=== PATIENT | male | born 1995 | race Two or more races ===

== ENCOUNTER 2019-12-23 09:56 | Emergency (ER) | payer BC ==
--- NOTE | 2019-12-23 11:32 | CT ---
CT abdomen and pelvis Technique: Multiple axial sections were obtained from above the dome of the diaphragm inferiorly through the pubic symphysis. Intravenous and oral contrast not utilized. Study has been performed as a ureteral stone protocol. Findings: Left ureter is mildly prominent. This finding is caused by an obstructing stone within the distal left ureter located proximal to the UVJ by about 2-3 cm. This stone measures about 2-3 mm. No other ureteral calculi are seen. Small nonobstructing calculi are seen within both kidneys. Other findings: Visualized lung bases show nothing acute. Liver shows fatty infiltration. Spleen appears normal. Adrenal glands show no nodule. Pancreas is within normal limits. Gallbladder contains no calcified gallstones. Appendix is seen and is normal in size and contains a very small appendicolith. Aorta shows no aneurysm. No retroperitoneal adenopathy or mesenteric abnormalities are seen. No pelvic mass or adenopathy is seen. No free fluid or inflammatory change is seen. Bone window settings were reviewed. Bilateral spondylitic defects noted at L5-S1. Impression: 1. 2-3 mm obstructing stone within the distal left ureter located about 2-3 cm from the UVJ. 2. Multiple small nonobstructing calculi within both kidneys. 3. Fatty infiltration within the liver. 4. Spondylolytic defects at L5-S1. Diagnostic code #3 Study was dictated in MDT
--- NOTE | 2019-12-23 12:02 | EDM.PDOC ---
ED HPI GENERAL MEDICAL PROBLEM - General Chief Complaint: Genitourinary Problem Stated Complaint: KIDNEY STONE Time Seen by Provider: 12/23/19 10:19 Source of Information: Reports: Patient, RN Notes Reviewed - History of Present Illness INITIAL COMMENTS - FREE TEXT/NARRATIVE: 24 yr old male with onset of L back and flank pain several hrs ago that continues. sharp, shooting, he has vomited, urine is dark. No fever or chills. No hx of stones. 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 Left Lower Finger-Thumb Pain Score (Numeric/FACES): 4 - Related Data Allergies Allergy/AdvReac Type Severity Reaction Status Date / Time No Known Allergies Allergy Verified 12/23/19 10:08 Home Meds: Home Meds Hydrocodone/Acetaminophen [Cypress 5-325 Tablet] 1 each PO Q4HR PRN #20 tablet 12/23/19 [Rx] Past Medical History - Past Health History Medical/Surgical History: Denies Medical/Surgical History Psychiatric History: Reports: ADD - Past Surgical History HEENT Surgical History: Reports: Adenoidectomy, Tonsillectomy Musculoskeletal Surgical History: Reports: Other (See Below) Other Musculoskeletal Surgeries/Procedures:: Right ACL repair Social & Family History - Tobacco Use Smoking Status *Q: Former Smoker Used Tobacco, but Quit: Yes Month/Year Tobacco Last Used: 2013 - Caffeine Use Caffeine Use: Reports: Energy Drinks - Recreational Drug Use Recreational Drug Use: No ED ROS GENERAL - Review of Systems Review Of Systems: See Below Constitutional: Denies: Fever, Chills, Diaphoresis HEENT: Reports: No Symptoms Respiratory: Denies: Shortness of Breath Cardiovascular: Denies: Chest Pain GI/Abdominal: Reports: Nausea, Vomiting. Denies: Abdominal Pain : Reports: Flank Pain. Denies: Frequency, Pain, Urgency Musculoskeletal: Reports: Back Pain Skin: Reports: No Symptoms Neurological: Reports: No Symptoms ED EXAM, RENAL/ - Physical Exam Exam: See Below General Appearance: Alert, Mild Distress Head: Atraumatic. No: Facial Swelling Neck: Supple, Full Range of Motion Respiratory/Chest: No Respiratory Distress Cardiovascular: Regular Rate, Rhythm GI/Abdominal: Non-Tender Back Exam: CVA Tenderness (L) (mild). No: CVA Tenderness (R) Extremities: Normal Inspection, Normal Range of Motion Neurological: Alert, Oriented, No Motor/Sensory Deficits Course - Vital Signs Last Recorded V/S: Last Vital Signs Temp 98.5 F 12/23/19 12:16 Pulse 88 12/23/19 12:16 Resp 18 12/23/19 12:16 BP 130/61 12/23/19 12:16 Pulse Ox 100 12/23/19 12:16 - Re-Assessments/Exams Free Text/Narrative Re-Assessment/Exam: 12/23/19 15:[address] shows a 2-3 mm stone distal L ureter, see Radiology report for details. Discharge instr. as documented. Departure - Departure Time of Disposition: 11:59 Disposition: Home, Self-Care 01 Condition: Fair Clinical Impression: Kidney stone on left side - Discharge Information Prescriptions: Hydrocodone/Acetaminophen [Cypress 5-325 Tablet] 1 each PO Q4HR PRN #20 tablet PRN Reason: Pain Instructions: Renal Colic, [id number], Kidney Stones, [id number], Flank Pain, Adult, [id number] Referrals: PCP,None [Primary Care Provider] - Forms: ED Department Discharge, ED Return to Work/School Form Additional Instructions: Drink plenty of water to maintain hydration. Strain urine to watch for stone. Tylenol for mild to moderate discomfort, hydrocodone if needed for severe pain. Do not drive or work when taking hydrocodone. Follow up clinic if you have not passed this stone within 3 to 4 days as expected. Sepsis Event Note (ED) - Evaluation Sepsis Screening Result: No Definite Risk - Focused Exam Vital Signs: Vital Signs Temp Pulse Resp BP Pulse Ox 12/23/19 12:16 98.5 F 88 18 130/61 100 12/23/19 10:05 97 F 71 18 152/86 H 100
== END 2019-12-23 12:18 | disposition home or self-care (01) ==
LOC: JD.ED 09:56
DX: N20.2 Calculus of kidney with calculus of ureter (principal); Z87.891 Personal history of nicotine dependence
CPT/HCPCS: 74176; 74176-26; 99283; 99284-25